=== PATIENT | male | born 1970 | race Caucasian/White ===

== ENCOUNTER 2018-07-04 19:50 | Observation (INO) | payer OTHER ==
[2018-07-04] MEDS ORDERED: Metoclopramide HCl 10 MG/2 ML VIAL ONE (21:37)
[2018-07-04] MEDS ORDERED: Ondansetron ODT 4 MG TAB SL PRN (23:01)
[2018-07-04] MEDS ORDERED: Ondansetron HCl/PF 4 MG/2 ML Vial IVP PRN (23:01)
[2018-07-04] MEDS ORDERED: HumaLOG 300 UNITS/3 ML VIAL SC PRN (23:03)
[2018-07-04] MEDS ORDERED: Dextrose 5% in Water 1,000 ML IV PRN (23:03)
[2018-07-04] MEDS ORDERED: Dextrose 50% Abboject 50 ML SYRINGE SLOW IVP PRN (23:03)
[2018-07-05] MEDS: Metoclopramide HCl 10 MG/2 ML VIAL IVP SCH ×3 (00:15→16:43)
[2018-07-05] MEDS: Sodium Chloride 0.9% 1,000 ML IV SCH ×2 (00:15→07:15)
[2018-07-05 01:23] VITALS: BMI 27.0
[2018-07-05 04:32] LABS: #Eosinphils 0.1 thou/uL (0.0-0.7); #Lymphocytes 3.1 thou/uL (1.20-3.40); #Monocytes 0.5 thou/uL (0.11-0.59); %Basophils 0.3 % (0.0-1.0); %Eosinophils 1.9 % (0.0-10.0); %Lymphocytes 39.7 % (21.0-51.0); %Monocytes 6.7 % (0.0-10.0); %Neutrophils 51.3 % (42.0-75.0); Hemoglobin 14.2 g/dL (14.0-18.0); Mean Corpuscular HGB CONC 35.9 g/dL (32.0-36.0); Mean Corpuscular Hemoglobin 32.4 pg (27.0-31.0); Mean Corpuscular Volume 90.3 fL (78.0-98.0); Mean Platelet Volume 6.9 fL (7.4-10.4); Platelet Count 189 thou/uL (130-400); RBC Distribution Width 11.1 % (11.5-14.5); Red Blood Cell (RBC) Count 4.37 mill/uL (4.70-6.10); White Blood Cell (WBC) Count 7.7 thou/uL (4.8-10.8)
[2018-07-05 05:01] LABS: Anion Gap 13 mmol/L (10-20); BUN (Urea Nitrogen) 10 mg/dL (8.9-20.6); Calc. Creatinine Clearance 147 mL/min (70-130); Calcium 8.3 mg/dL (7.8-10.44); Carbon Dioxide 22 mmol/L (22-29); Chloride 105 mmol/L (98-107); Estimated GFR-MDRD Greater than 90; Glucose 119 mg/dL (70-105); Potassium 3.2 mmol/L (3.5-5.1); Sodium 137 mmol/L (136-145)
[2018-07-05] MEDS: Enoxaparin Sodium 40 MG/0.4 ML SYRINGE SC SCH (08:35)
[2018-07-05] MEDS ORDERED: Famotidine/PF 20 mg/2ml Vial SLOW IVP SCH (09:00)
[2018-07-05] MEDS ORDERED: Potassium Chloride 20 MEQ in Premix Bag 1 BAG IVPB SCH (09:30)
--- NOTE | 2018-07-05 13:48 | ULT ---
GALLBLADDER ULTRASOUND: Date: 07/05/18 HISTORY: Right upper quadrant pain. FINDINGS: Real-time imaging of the right upper quadrant demonstrates a normal appearing gallbladder. Technologi st reports a negative ultrasound Lee's sign. Common duct is 4.0 mm. The liver is partially obscured by gas. No abnormality seen. Right kidney is normal in size and not obstructed. The pancreas is obscured. IMPRESSION: Unremarkable gallbladder ultrasound. POS: [facility]
--- NOTE | 2018-07-05 14:30 | HP ---
DATE OF ADMISSION: 07/04/2018 PRIMARY CARE PHYSICIAN: Patient reported follows with Dr. London Griggs in [place]. CODE STATUS: FULL CODE. TIME OF EVALUATION: 10:00 p.m. CHIEF COMPLAINT: Continued nausea and vomiting. HISTORY OF PRESENT ILLNESS: This is a 47-year-old male patient with past medical history of diabetes , recurrent, gastroparesis episodes, came to the hospital after having continuous nausea and vomiting . He reported he cannot hold anything down. Patient has been in the hospital in [place] and [place] ___ __ symptoms have been severe. No clear triggers, no alleviating factors, he is improved when I saw h im at bedside. Patient reported some nausea, vomiting, dysarthria with food. REVIEW OF SYSTEMS: Constitutional: No fever or chills. Patient reported generalized weakness. Res piratory: No cough, sputum production, shortness of breath. Cardiovascular: No chest pain, palpita tions, shortness of breath. Gastrointestinal: Patient had nausea, vomiting, diarrhea, and abdominal pain. MOBILITY ARCHITECT: No dizziness, headache, or feeling lightheaded. Genitourinary: No burning with urinat ion. Extremities: No leg swelling. All other systems were reviewed and negative except for the fin dings mentioned above. PAST MEDICAL HISTORY: Positive for diabetes type 2, hypertension. PAST SURGICAL HISTORY: No surgical history. PSYCHIATRIC HISTORY: No psych history. SOCIAL HISTORY: No alcohol, no drugs. No smoking history. FAMILY HISTORY: Reported as negative. DRUG ALLERGIES: No known drug allergies. REPORTED MEDICATIONS: Lantus, metformin, lisinopril, Zofran, Reglan, Protonix. PHYSICAL EXAMINATION: VITAL SIGNS: On presentation, blood pressure 123/81 with heart rate 91, respiratory rate was 18, tem perature 99, pain 6/10, oxygen saturation 97 on room air. GENERAL APPEARANCE: The patient is alert, oriented, not in any acute distress, has improved. HEENT: Eyes: Normal conjunctivae, moist mucous mucosa, anicteric. NECK: No JVD. RESPIRATORY: Bilateral air entry. No rales, no wheezing. Symmetric expansion. CARDIOVASCULAR: Normal rate, regular rhythm. No carotid bruits. No gallop. No edema. ABDOMEN: Soft, normal bowel sounds. MUSCULOSKELETAL: Baseline range of motion. No tenderness. SKIN: Warm, intact. No pallor, no rash, no redness. NEUROLOGIC: Baseline sensory. No evidence of any focal weakness. Baseline speech. Cranial nerves seem to be intact. PSYCHIATRIC: The patient is in a good mood. No anxiety and oriented. Optimal judgment. LABORATORY DATA: Records are reviewed. The patient has abdomen and pelvis, CAT scan done on the 24t h, which showed no specific abnormality, small hiatal hernia. Gallbladder is somewhat enlarged, but no stones were appreciated and tiny nonobstructing right renal calculus. The labs were reviewed. Ant dennison has white count 7.7, hemoglobin 14.2, MCV 90, platelet count 189. Sodium 137, potassium 3.2, c hloride 105, carbon dioxide 22, anion gap 13, BUN 10, creatinine 0.7, GFR 90, glucose 119, calcium 9. 3. ASSESSMENT AND PLAN: The patient will be placed in the hospital with following medical problems: 1. Continuous nausea and vomiting, most likely gastroparesis from diabetes, we will place the patien t on antiemetics, improved diabetic control. 2. Controlled diabetes. Patient presented with glucose of 119, we will reconcile home meds, patient has not been eating properly, so would not be aggressive with the insulin. 3. Hypokalemia with potassium 3.2, we will replace electrolytes as needed. 4. Deep venous thrombosis prophylaxis. .
[2018-07-05] MEDS: Ondansetron HCl/PF 4 MG/2 ML Vial IVP PRN (14:55)
[2018-07-05] MEDS: Acetaminophen 325 MG TAB PO PRN (16:43)
[2018-07-05] MEDS: NS 0.9% w/ 40 MEQ KCL 1,000 ML IV SCH (16:57)
[2018-07-05] MEDS ORDERED: Lisinopril 20 MG TAB PO SCH (17:30)
[2018-07-05] MEDS ORDERED: Lorazepam 2 MG/ML VIAL SLOW IVP SCH (17:30)
--- NOTE | 2018-07-05 19:35 | PDOC.EVN ---
Event Note - Event Note Event Note: pt's ruq ultrasound is negative. He continues to have n/v. His ct abd/pel is normal. will start reglan for possible gastroparesis if he continues to have n/ v will consider consulting gi. pt's lipase is normal. He is on ppi.
[2018-07-05] MEDS ORDERED: Lorazepam 2 MG/ML VIAL SLOW IVP PRN (21:26)
[2018-07-05] MEDS ORDERED: Metoclopramide HCl 10 MG/2 ML VIAL IVP SCH (22:00)
[2018-07-06] MEDS: Metoclopramide HCl 10 MG/2 ML VIAL IVP SCH ×4 (00:03→20:24)
[2018-07-06] MEDS: NS 0.9% w/ 40 MEQ KCL 1,000 ML IV SCH ×2 (03:33→14:17)
[2018-07-06] MEDS: Enoxaparin Sodium 40 MG/0.4 ML SYRINGE SC SCH (08:39)
[2018-07-06] MEDS: Lisinopril 20 MG TAB PO SCH ×2 (08:40→08:42)
[2018-07-06 09:17] LABS: #Eosinphils 0.1 thou/uL (0.0-0.7); #Lymphocytes 2.3 thou/uL (1.20-3.40); #Monocytes 0.8 thou/uL (0.11-0.59); #Neutrophils 5.9 thou/uL (1.40-6.50); %Basophils 0.5 % (0.0-1.0); %Eosinophils 1.5 % (0.0-10.0); %Lymphocytes 24.9 % (21.0-51.0); %Monocytes 8.4 % (0.0-10.0); %Neutrophils 64.7 % (42.0-75.0); Hemoglobin 16.6 g/dL (14.0-18.0); Mean Corpuscular HGB CONC 35.5 g/dL (32.0-36.0); Mean Corpuscular Hemoglobin 31.9 pg (27.0-31.0); Mean Corpuscular Volume 89.9 fL (78.0-98.0); Mean Platelet Volume 6.8 fL (7.4-10.4); Platelet Count 225 thou/uL (130-400); RBC Distribution Width 11.2 % (11.5-14.5); Red Blood Cell (RBC) Count 5.21 mill/uL (4.70-6.10); White Blood Cell (WBC) Count 9.2 thou/uL (4.8-10.8)
[2018-07-06 09:35] LABS: ALT (SGPT) 17 U/L (8-55); AST (SGOT) 11 U/L (5-34); Albumin 3.7 g/dL (3.5-5.0); Alkaline Phosphatase 59 U/L (40-150); Anion Gap 18 mmol/L (10-20); BUN (Urea Nitrogen) 9 mg/dL (8.9-20.6); Bilirubin, Total 0.9 mg/dL (0.2-1.2); Calc. Creatinine Clearance 131 mL/min (70-130); Calcium 8.9 mg/dL (7.8-10.44); Carbon Dioxide 16 mmol/L (22-29); Chloride 104 mmol/L (98-107); Estimated GFR-MDRD Greater than 90; Globulin 2.6 g/dL (2.4-3.5); Glucose 139 mg/dL (70-105); Potassium 4.1 mmol/L (3.5-5.1); Protein, Total 6.3 g/dL (6.0-8.3); Sodium 134 mmol/L (136-145)
--- NOTE | 2018-07-06 10:30 | PDOC.PN ---
- Subjective Encounter Start Date: 07/06/18 Encounter Start Time: 10:32 Subjective: pt up in bed still has nause and vomiting - Objective Resuscitation Status: Resuscitation Status FULL:Full Resuscitation Vital Signs & Weight: Vital Signs (12 hours) Temp Pulse Resp BP BP Pulse Ox 07/06/18 08:42 199/95 H 07/06/18 07:44 98.3 F 104 H 18 07/06/18 07:29 98.1 F 96 16 110/61 94 L 07/06/18 04:25 98.3 F 104 H 18 113/75 96 07/06/18 00:36 98.9 F 90 14 136/78 96 Weight Weight 177 lb 14.4 oz I&O: 07/05/18 07/06/18 07/07/18 06:59 06:59 06:59 Intake Total 970 2112 Output Total 450 2575 Balance 520 -463 Result Diagrams: 07/06/18 09:02 07/06/18 09:02 Additional Labs: Accuchecks 07/06/18 07/05/18 07/05/18 05:24 20:57 16:34 POC Glucose 139 H 153 H 143 H 07/05/18 10:29 POC Glucose 164 H Phys Exam - Physical Examination Neck: no nodes, no JVD, supple, full ROM Respiratory: no wheezing, no rales, no rhonchi, wheezing present, clear to auscultation bilateral Cardiovascular: RRR, no significant murmur, no rub, gallop, irregular mild epigastric pain Musculoskeletal: no edema, pulses present, edema present Dx/Plan (1) Nausea & vomiting Code(s): R11.2 - NAUSEA WITH VOMITING, UNSPECIFIED Status: Acute - Plan pt has been admitted couple times for n/v at [facility] -: He was sent home with dx of gastroparesis but pt continues to have n/v -: He had ct abd/pel which did not indicate any acute pathlogy -: lipase normal, ruq normal, pt was on farxiga which was discontinued -: will consult gi. pt on ppi and reglan. labs normal * . Review of Systems - Review of Systems Respiratory: negative: Cough, Dry, Shortness of Breath, Hemoptysis, SOB with Excertion, Pleuritic Pain, Sputum, Wheezing Gastrointestinal: Nausea, Vomiting Musculoskeletal: negative: Neck Pain, Shoulder Pain, Arm Pain, Back Pain, Hand Pain, Leg Pain, Foot Pain, Other - Medications/Allergies Allergies/Adverse Reactions: Allergies Allergy/AdvReac Type Severity Reaction Status Date / Time No Known Drug Allergies Allergy Verified 07/04/18 22:58 Medications: Current Medications Acetaminophen (Tylenol) 650 mg PO Q4H PRN PRN Reason: Headache/Fever or Pain Last Admin: 07/05/18 16:43 Dose: 650 mg Dextrose/Water (Dextrose 50%) 25 gm SLOW IVP PRN PRN PRN Reason: Hypoglycemia Enoxaparin Sodium (Lovenox) 40 mg SC 0900 [facility] Last Admin: 07/06/18 08:39 Dose: 40 mg Glucagon (Glucagon) 1 mg IM PRN PRN PRN Reason: Hypoglycemia Dextrose/Water (D5w) 1,000 mls @ 0 mls/hr IV .Q0M PRN PRN Reason: Hypoglycemia Potassium Chloride/Sodium Chloride (Ns 0.9% W/ 40 Meq Kcl) 1,000 mls @ 100 mls/ hr IV .Q10H [facility] Last Admin: 07/06/18 03:33 Dose: 1,000 mls Insulin Human Lispro (Humalog) 0 units SC .MILD SLIDING SCALE PRN PRN Reason: Mild Correctional Scale Lisinopril (Zestril) 40 mg PO DAILY [facility] Last Admin: 07/06/18 08:42 Dose: 40 mg Metoclopramide HCl (Reglan) 10 mg IVP 0800,1600,2359 [facility] Last Admin: 07/06/18 08:39 Dose: 10 mg Ondansetron HCl (Zofran) 4 mg IVP Q6H PRN PRN Reason: Nausea/Vomiting Last Admin: 07/05/18 14:55 Dose: 4 mg Sodium Chloride (Flush - Normal Saline) 10 ml IVF PRN PRN PRN Reason: Saline Flush
[2018-07-06] MEDS ORDERED: Pantoprazole 40 MG VIAL IVP SCH (10:45)
[2018-07-06] MEDS: Ondansetron HCl/PF 4 MG/2 ML Vial IVP PRN (10:55)
[2018-07-06] MEDS ORDERED: Promethazine HCl 25 MG/ML VIAL IVPB SCH (14:00)
--- NOTE | 2018-07-06 16:21 | CON ---
DATE OF CONSULTATION: 07/06/2018 HISTORY OF PRESENT ILLNESS: The patient is a 47-year-old male who reports 10-day history o f nausea and vomiting. He was initially hospitalized over at [facility] and kept there for a co uple of days. He did not undergo any gastric emptying or any other procedures and was told he had ga stroparesis. He was seen in the emergency room here on the and underwent a CT of the abdomen an d pelvis on 06/27/2018 that showed small hiatal hernia, large gallbladder, but no stones. Subsequent ly, he underwent an ultrasound on 07/05/2018 again showing no abnormalities. He was again seen in e emergency room on the and again on . He denies any change in his bowel movements. Denies any recent weight loss. He had lost approximately 130 pounds with diet and exercise over the last se veral years. PAST MEDICAL HISTORY: Includes diabetes mellitus for 12 years without neuropathy, hypertension. MEDICATIONS: Include metformin 1000 mg p.o. b.i.d., Protonix 40 mg p.o. b.i.d., lisinopril 2.5 mg p. o. daily, insulin 20 units subcu q.a.m. ALLERGIES: No known allergies. SOCIAL HISTORY: He does not smoke or drink. Denies any illicit drug use. FAMILY HISTORY: Negative for GI or liver disease. REVIEW OF SYSTEMS: Ten systems were reviewed and were negative except for above. PHYSICAL EXAMINATION: VITAL SIGNS: Shows temperature 98.6, pulse 66, respiratory rate 12, blood pressure 169/86. HEENT: Unremarkable. NECK: Supple. CHEST: Clear. CARDIOVASCULAR: Regular rate and rhythm. ABDOMEN: Significant for a pannus, but not obese, is nontender. LABORATORY DATA: Shows a white blood cell count of 9.2, hemoglobin 16.6, hematocrit of 46.8. Chemis tries; significant for sodium 134, CO2 16, glucose 139. Urinalysis is significant for 500 glucose, 8 0 ketones. ASSESSMENT: 1. Persistent nausea and vomiting. 2. Diabetes mellitus without neuropathy. RECOMMENDATIONS: EGD in a.m.
--- NOTE | 2018-07-06 16:50 | CT ---
CT BRAIN NONCONTRAST: HISTORY: 47-year-old male with nausea, vomiting, and headache. FINDINGS: The ventricles are normal in size and configuration. There is no midline shift or any other mass eff ect. There is no evidence of acute intracranial hemorrhage, large cortical infarct, or extraaxial fl uid collection. The fofana matter /white matter differentiation is maintained. The calvarium is intac t. The tympanomastoid cavities, and the upper portions of the paranasal sinuses included in these im ages, are grossly clear. IMPRESSION: Normal. karthik POS: [facility]
[2018-07-06] MEDS: Pantoprazole 40 MG VIAL IVP SCH (20:18)
[2018-07-07 01:09] LABS: Amphetamine Not Detected (NotDetected); Barbiturates Screen Not Detected (NotDetected); Benzodiazepine Screen Detected (NotDetected); Cocaine Metabolite Screen Not Detected (NotDetected); Medtox Control Line Valid? VALID (VALID); Medtox Reader # READER 4; Methadone Not Detected (NotDetected); Methamphetamine Not Detected (NotDetected); Opiate Screen Not Detected (NotDetected); Oxycodone Screen Not Detected (NotDetected); Phencyclidine (PCP) Not Detected (NotDetected); THC/Cannabinoid Screen Not Detected (NotDetected); Tricyclic Screen Not Detected (NotDetected)
[2018-07-07] MEDS: Metoclopramide HCl 10 MG/2 ML VIAL IVP SCH ×2 (02:17→07:53)
[2018-07-07] MEDS: NS 0.9% w/ 40 MEQ KCL 1,000 ML IV SCH ×3 (02:56→17:28)
[2018-07-07] MEDS: Pantoprazole 40 MG VIAL IVP SCH (07:53)
[2018-07-07] MEDS: Enoxaparin Sodium 40 MG/0.4 ML SYRINGE SC SCH (07:53)
[2018-07-07] MEDS: Lisinopril 20 MG TAB PO SCH (07:54)
[2018-07-07] MEDS ORDERED: PROPOFOL 200 MG/20 ML VIAL ONE (10:10)
[2018-07-07] MEDS ORDERED: Promethazine HCl 25 MG/ML VIAL IM PRN (10:25)
[2018-07-07] MEDS ORDERED: Ondansetron HCl/PF 4 MG/2 ML Vial IVP PRN (10:25)
[2018-07-07] MEDS ORDERED: Promethazine HCl 25 MG/ML VIAL SLOW IVP PRN (10:25)
[2018-07-07] MEDS ORDERED: Promethazine HCl 25 MG/ML VIAL ONE (10:29)
--- NOTE | 2018-07-07 10:59 | OP ---
DATE OF PROCEDURE: 07/07/2018 SURGEON: Dr. Pola Andrade PROCEDURE: After informed consent was obtained, the patient placed in the left lateral decubitus pos ition. Anesthesia was administered per the Anesthesia Department. Forward-viewing endoscope was ins erted in the esophagus under direct visualization with ease and passed to the second portion of the d uodenum with ease. Second portion of the duodenum and duodenal bulb were normal. The pylorus was no rmal. The antrum, body, fundus, and cardia were diffusely erythematous with a large amount of bile-c olored fluid in the stomach. Heme staining was noted throughout the stomach. Biopsies were taken fr om the antrum and body. Retroflexion in the stomach was normal. The GE junction was normal except t he Z-line was somewhat irregular. Biopsies were taken to rule out Ansari's. The patient had grade D erosive esophagitis. ASSESSMENT: 1. Grade D reflux esophagitis. 2. Irregular Z-line - status post biopsy. 3. Diffuse gastritis - status post biopsy. 4. Heme staining in the stomach. RECOMMENDATIONS: 1. IV PPI b.i.d. 2. Long-term PPI. 3. We will add some Carafate. 4. Gastric emptying scan.
[2018-07-07] MEDS: Sucralfate 1 GM TAB PO SCH ×3 (11:25→21:25)
[2018-07-07] MEDS ORDERED: Pantoprazole 80 MG, Admixture Fee 1 EACH in Sodium Chloride 0.9% 100 ML IVP SCH (11:30)
[2018-07-07] MEDS: Ondansetron HCl/PF 4 MG/2 ML Vial IVP PRN ×2 (11:40→18:11)
[2018-07-07 12:18] LABS: #Lymphocytes 1.2 thou/uL (1.20-3.40); #Monocytes 0.6 thou/uL (0.11-0.59); #Neutrophils 6.9 thou/uL (1.40-6.50); %Basophils 0.2 % (0.0-1.0); %Eosinophils 0.3 % (0.0-10.0); %Lymphocytes 14.1 % (21.0-51.0); %Monocytes 6.8 % (0.0-10.0); %Neutrophils 78.6 % (42.0-75.0); Hemoglobin 17.2 g/dL (14.0-18.0); Mean Corpuscular HGB CONC 35.3 g/dL (32.0-36.0); Mean Corpuscular Hemoglobin 31.8 pg (27.0-31.0); Mean Corpuscular Volume 90.2 fL (78.0-98.0); Mean Platelet Volume 6.6 fL (7.4-10.4); Platelet Count 244 thou/uL (130-400); RBC Distribution Width 11.3 % (11.5-14.5); White Blood Cell (WBC) Count 8.8 thou/uL (4.8-10.8)
[2018-07-07 12:29] LABS: Anion Gap 21 mmol/L (10-20); BUN (Urea Nitrogen) 10 mg/dL (8.9-20.6); Calc. Creatinine Clearance 110 mL/min (70-130); Calcium 9.4 mg/dL (7.8-10.44); Carbon Dioxide 15 mmol/L (22-29); Chloride 104 mmol/L (98-107); Estimated GFR-MDRD 86; Glucose 165 mg/dL (70-105); Potassium 4.4 mmol/L (3.5-5.1); Sodium 136 mmol/L (136-145)
[2018-07-07] MEDS: Acetaminophen 325 MG TAB PO PRN (15:37)
--- NOTE | 2018-07-07 17:07 | PDOC.PN ---
- Subjective Encounter Start Date: 07/07/18 Encounter Start Time: 10:45 Subjective: pt up in bed just came back from his egd - Objective Resuscitation Status: Resuscitation Status FULL:Full Resuscitation Vital Signs & Weight: Vital Signs (12 hours) Temp Pulse Resp BP BP Pulse Ox 07/07/18 15:21 98.8 F 87 20 179/96 H 97 07/07/18 12:53 129/72 07/07/18 11:40 98.6 F 77 15 97 07/07/18 10:42 102 H 16 141/83 H 97 07/07/18 08:00 98.3 F 108 H 16 07/07/18 07:39 98.3 F 108 H 16 159/102 H 97 Weight Weight 177 lb 14.4 oz I&O: 07/06/18 07/07/18 07/08/18 06:59 06:59 06:59 Intake Total 2112 2592 Output Total 2575 575 100 Balance -463 2016 Result Diagrams: 07/07/18 12:02 07/07/18 12:02 Additional Labs: Accuchecks 07/07/18 07/07/18 07/07/18 16:33 10:49 05:32 POC Glucose 172 H 175 H 175 H 07/06/18 21:08 POC Glucose 159 H Phys Exam - Physical Examination Neck: no nodes, no JVD, supple, full ROM Respiratory: no wheezing, no rales, no rhonchi, wheezing present, clear to auscultation bilateral Cardiovascular: RRR, no significant murmur, no rub, gallop, irregular Gastrointestinal: soft, non-tender, no distention, positive bowel sounds Dx/Plan (1) Nausea & vomiting Code(s): R11.2 - NAUSEA WITH VOMITING, UNSPECIFIED Status: Acute (2) Gastroparesis Code(s): K31.84 - GASTROPARESIS Status: Acute (3) Diabetes Code(s): E11.9 - TYPE 2 DIABETES MELLITUS WITHOUT COMPLICATIONS Status: Acute - Plan pt up in bed post egd -: pt on ppi -: pt to go for gastric emptyping study. * . Review of Systems - Review of Systems ENT: negative: Ear Pain, Ear Discharge, Nose Pain, Nose Discharge, Nose Congestion, Mouth Pain, Mouth Swelling, Throat Pain, Throat Swelling, Other Respiratory: negative: Cough, Dry, Shortness of Breath, Hemoptysis, SOB with Excertion, Pleuritic Pain, Sputum, Wheezing Cardiovascular: negative: chest pain, palpitations, orthopnea, paroxysmal nocturnal dyspnea, edema, light headedness, other Gastrointestinal: negative: Nausea, Vomiting, Abdominal Pain, Diarrhea, Constipation, Melena, Hematochezia, Other - Medications/Allergies Allergies/Adverse Reactions: Allergies Allergy/AdvReac Type Severity Reaction Status Date / Time No Known Drug Allergies Allergy Verified 07/04/18 22:58 Medications: Current Medications Acetaminophen (Tylenol) 650 mg PO Q4H PRN PRN Reason: Headache/Fever or Pain Last Admin: 07/07/18 15:37 Dose: 650 mg Dextrose/Water (Dextrose 50%) 25 gm SLOW IVP PRN PRN PRN Reason: Hypoglycemia Enoxaparin Sodium (Lovenox) 40 mg SC 0900 [facility] Last Admin: 07/07/18 07:53 Dose: Not Given Glucagon (Glucagon) 1 mg IM PRN PRN PRN Reason: Hypoglycemia Dextrose/Water (D5w) 1,000 mls @ 0 mls/hr IV .Q0M PRN PRN Reason: Hypoglycemia Potassium Chloride/Sodium Chloride (Ns 0.9% W/ 40 Meq Kcl) 1,000 mls @ 100 mls/ hr IV .Q10H [facility] Last Admin: 07/07/18 12:33 Dose: Not Given Pantoprazole Sodium 80 mg/Miscellaneous Medication 1 each/ Sodium Chloride 100 mls @ 10 mls/hr IVP INF [facility] Last Admin: 07/07/18 12:29 Dose: 100 mls Insulin Human Lispro (Humalog) 0 units SC .MILD SLIDING SCALE PRN PRN Reason: Mild Correctional Scale Last Admin: 07/07/18 11:25 Dose: 2 unit Lisinopril (Zestril) 40 mg PO DAILY [facility] Last Admin: 07/07/18 07:54 Dose: Not Given Ondansetron HCl (Zofran) 4 mg IVP Q6H PRN PRN Reason: Nausea/Vomiting Last Admin: 07/07/18 11:40 Dose: 4 mg Sodium Chloride (Flush - Normal Saline) 10 ml IVF PRN PRN PRN Reason: Saline Flush Sucralfate (Carafate) 1 gm PO ACHS [facility] Last Admin: 07/07/18 16:30 Dose: 1 gm
[2018-07-07] MEDS ORDERED: hydrALAZINE 20 MG/ML VIAL SLOW IVP PRN (18:00)
[2018-07-07] MEDS ORDERED: Lisinopril 20 MG TAB PO SCH (18:00)
[2018-07-07] MEDS ORDERED: Melatonin 3 MG TAB PO PRN (21:18)
[2018-07-08] MEDS: NS 0.9% w/ 40 MEQ KCL 1,000 ML IV SCH ×2 (04:25→16:33)
[2018-07-08 04:49] LABS: Anion Gap 17 mmol/L (10-20); BUN (Urea Nitrogen) 12 mg/dL (8.9-20.6); Calc. Creatinine Clearance 124 mL/min (70-130); Carbon Dioxide 18 mmol/L (22-29); Chloride 106 mmol/L (98-107); Estimated GFR-MDRD Greater than 90; Glucose 132 mg/dL (70-105); Sodium 137 mmol/L (136-145)
--- NOTE | 2018-07-08 09:52 | PDOC.PN ---
- Subjective Encounter Start Date: 07/08/18 Encounter Start Time: 10:30 Subjective: pt up in bed no complains - Objective Resuscitation Status: Resuscitation Status FULL:Full Resuscitation Vital Signs & Weight: Vital Signs (12 hours) Temp Pulse Resp BP Pulse Ox 07/08/18 08:23 98.0 F 89 18 07/08/18 07:47 98.0 F 89 18 128/81 95 07/08/18 03:44 98.1 F 73 14 120/76 95 07/08/18 00:08 98.5 F 71 16 101/68 95 Weight Weight 165 lb 14.4 oz I&O: 07/07/18 07/08/18 07/09/18 06:59 06:59 06:59 Intake Total 2592 2140 Output Total 575 100 Balance 2016 2039 Result Diagrams: 07/07/18 12:02 07/08/18 03:23 Additional Labs: Accuchecks 07/07/18 07/07/18 07/07/18 21:04 16:33 10:49 POC Glucose 158 H 172 H 175 H Phys Exam - Physical Examination Neck: no nodes, no JVD, supple, full ROM Respiratory: no wheezing, no rales, no rhonchi, wheezing present, clear to auscultation bilateral Cardiovascular: RRR, no significant murmur, no rub, gallop, irregular Gastrointestinal: soft, non-tender, no distention, positive bowel sounds Dx/Plan (1) Nausea & vomiting Code(s): R11.2 - NAUSEA WITH VOMITING, UNSPECIFIED Status: Acute (2) Gastroparesis Code(s): K31.84 - GASTROPARESIS Status: Acute (3) Diabetes Code(s): E11.9 - TYPE 2 DIABETES MELLITUS WITHOUT COMPLICATIONS Status: Acute - Plan pt to have gastric emptyping studying -: will see if he can tolerate his po fluids well -: will continue carafate and ppi * . Review of Systems - Review of Systems Respiratory: negative: Cough, Dry, Shortness of Breath, Hemoptysis, SOB with Excertion, Pleuritic Pain, Sputum, Wheezing Cardiovascular: negative: chest pain, palpitations, orthopnea, paroxysmal nocturnal dyspnea, edema, light headedness, other Gastrointestinal: negative: Nausea, Vomiting, Abdominal Pain, Diarrhea, Constipation, Melena, Hematochezia, Other Genitourinary: negative: Dysuria, Frequency, Incontinence, Hematuria, Retention , Other - Medications/Allergies Allergies/Adverse Reactions: Allergies Allergy/AdvReac Type Severity Reaction Status Date / Time No Known Drug Allergies Allergy Verified 07/04/18 22:58 Medications: Current Medications Acetaminophen (Tylenol) 650 mg PO Q4H PRN PRN Reason: Headache/Fever or Pain Last Admin: 07/07/18 15:37 Dose: 650 mg Dextrose/Water (Dextrose 50%) 25 gm SLOW IVP PRN PRN PRN Reason: Hypoglycemia Enoxaparin Sodium (Lovenox) 40 mg SC 0900 [facility] Last Admin: 07/07/18 07:53 Dose: Not Given Glucagon (Glucagon) 1 mg IM PRN PRN PRN Reason: Hypoglycemia Hydralazine HCl (Apresoline) 5 mg SLOW IVP Q6H PRN PRN Reason: .SBP >180 Dextrose/Water (D5w) 1,000 mls @ 0 mls/hr IV .Q0M PRN PRN Reason: Hypoglycemia Potassium Chloride/Sodium Chloride (Ns 0.9% W/ 40 Meq Kcl) 1,000 mls @ 100 mls/ hr IV .Q10H [facility] Last Admin: 07/08/18 04:25 Dose: 1,000 mls Pantoprazole Sodium 80 mg/Miscellaneous Medication 1 each/ Sodium Chloride 100 mls @ 10 mls/hr IVP INF [facility] Last Admin: 07/07/18 12:29 Dose: 100 mls Insulin Human Lispro (Humalog) 0 units SC .MILD SLIDING SCALE PRN PRN Reason: Mild Correctional Scale Last Admin: 07/07/18 11:25 Dose: 2 unit Lisinopril (Zestril) 40 mg PO DAILY [facility] Last Admin: 07/07/18 07:54 Dose: Not Given Ondansetron HCl (Zofran) 4 mg IVP Q6H PRN PRN Reason: Nausea/Vomiting Last Admin: 07/07/18 18:11 Dose: 4 mg Sodium Chloride (Flush - Normal Saline) 10 ml IVF PRN PRN PRN Reason: Saline Flush Sucralfate (Carafate) 1 gm PO ACHS [facility] Last Admin: 07/07/18 21:25 Dose: 1 gm
--- NOTE | 2018-07-08 12:09 | PRG ---
DATE OF SERVICE: 07/08/2018 SUBJECTIVE: The patient is doing well. He says he has not had any nausea, vomiting. He is presentl y n.p.o. and awaiting a gastric emptying scan. OBJECTIVE: VITAL SIGNS: Temperature 98.0, pulse 89, respiratory rate 18, and blood pressure 128/81. CHEST: Clear. CARDIOVASCULAR: Regular rate and rhythm. ABDOMEN: Benign. LABORATORY DATA: Shows a normal BMP. ASSESSMENT: 1. Persistent nausea and vomiting. 2. Grade D reflux esophagitis. 3. Diffuse gastritis. RECOMMENDATIONS: 1. Continue IV PPI b.i.d. 2. Await gastric emptying scan results. 3. Long-term PPI. 4. Resume diet after gastric emptying scan and if able to tolerate would be able to be discharged fr om GI standpoint.
[2018-07-08] MEDS: Ondansetron HCl/PF 4 MG/2 ML Vial IVP PRN (14:57)
[2018-07-08] MEDS: Sucralfate 1 GM TAB PO SCH ×3 (14:57→20:41)
[2018-07-08] MEDS: Lisinopril 20 MG TAB PO SCH (14:57)
[2018-07-08 15:13] VITALS: TEMP 98.1
--- NOTE | 2018-07-08 15:15 | NM ---
GASTRIC EMPTYING EXAM: HISTORY: Persistent nausea and vomiting. TECHNIQUE: A nuclear medicine gastric emptying exam was performed after administration of 2 mCi of sulfur colloi d mixed with eggs. FINDINGS: 25% emptying is seen at 30 minutes. 25% emptying is seen at 61 minutes. 60% emptying is seen at 126 minutes. 59% emptying is seen at 195 minutes. 55% emptying is seen at 238 minutes. T-1/2 of gastr ic emptying is 107 minutes. IMPRESSION: Delayed gastric emptying. POS: [facility]
[2018-07-08] MEDS: Enoxaparin Sodium 40 MG/0.4 ML SYRINGE SC SCH (15:33)
[2018-07-08] MEDS: Metoclopramide 10 MG/10 ML UDCUP PO SCH ×2 (16:24→20:40)
[2018-07-08] MEDS: Sodium Chloride 0.9% 1,000 ML IV SCH (16:26)
--- NOTE | 2018-07-08 16:31 | PDOC.EVN ---
Event Note - Event Note Event Note: delayed gastric emptying study. will add reglan oral. if pt tolerates oral well he can go home in am.
[2018-07-08] MEDS: Pantoprazole 40 MG VIAL IVP SCH (20:41)
[2018-07-09] MEDS: Sodium Chloride 0.9% 1,000 ML IV SCH (02:06)
[2018-07-09 08:21] VITALS: BP 120/80
[2018-07-09] MEDS: Metoclopramide 10 MG/10 ML UDCUP PO SCH ×2 (08:30→11:31)
[2018-07-09] MEDS: Sucralfate 1 GM TAB PO SCH ×2 (08:31→11:32)
[2018-07-09] MEDS: Enoxaparin Sodium 40 MG/0.4 ML SYRINGE SC SCH (08:32)
[2018-07-09] MEDS: Pantoprazole 40 MG VIAL IVP SCH (08:32)
[2018-07-09] MEDS: Lisinopril 20 MG TAB PO SCH (08:32)
--- NOTE | 2018-07-09 11:42 | DIS ---
DATE OF ADMISSION: 07/04/2018 DATE OF DISCHARGE: 07/09/2018 DISCHARGE DIAGNOSES: 1. Diabetic gastroparesis. 2. Nausea and vomiting, resolving. 3. Diabetes mellitus type 2, insulin requiring. CONSULTATION: Dr. Andrade with GI Service. PERTINENT LABORATORY DATA AND IMAGING DATA: Basic metabolic profile within normal limits. LFT is wi thin normal limits. CBC within normal limits. Abdominal ultrasound dated 07/05/[address] of the brain without contrast dated 07/06/2018 showed negative findings. Gastric empt sudhir study dated 07/08/2018 showed delayed gastric emptying. HOSPITAL COURSE: The patient was observed on the medical floor after initially presenting with persi stent nausea and vomiting in the context of known diabetes mellitus with suspected gastroparesis. Th e patient was placed on IV fluids and given antiemetics and proton pump inhibitors. The patient was evaluated by the GI Service with recommendations for symptomatic management. The patient had a protr acted hospital course due to the difficult to control symptoms and persistent nausea. The patient un derwent evaluation including gastric emptying study showing delayed study with recommendations for me toclopramide and continuation of a proton pump inhibitor. The patient eventually improved symptomati alec and was tolerating regular oral intake without recurrent nausea or vomiting. The patient remai mihai clinically stable for the remainder the hospital course. I have examined the patient at the time of discharge and discussed followup instructions at which patient verbalized understanding and agree ment. The patient overall clinically stable and ready for discharge on 07/09/2018. DISCHARGE MEDICATIONS: 1. Reglan 10 mg p.o. t.i.d. 2. Lisinopril 40 mg p.o. daily. 3. Zofran 4 mg p.o. q.8 hours p.r.n. nausea, vomiting. 4. Metformin 1000 mg p.o. b.i.d. 5. Levemir 20 units subcutaneously daily. 6. Protonix 40 mg p.o. b.i.d. FOLLOWUP: Patient to follow up with primary care provider, Dr. London Griggs in [place], [place]. CONDITION ON DISCHARGE: Stable. ACTIVITY: Ad aydin. DIET: ADA. CODE STATUS: Full. DISPOSITION: Home 07/09/2018.
== END 2018-07-09 12:23 | disposition home or self-care (01) ==
LOC: ERS 19:50 → 2SW 21:30
PROVIDERS: ADMIT Hospitalist; ATTEND Hospitalist
PROC: 0DB58ZX Excision of Esophagus, Via Natural or Artificial Opening Endoscopic, Diagnostic (ICD-10-PCS; principal; 2018-07-07)
PROC: 0DB68ZX Excision of Stomach, Via Natural or Artificial Opening Endoscopic, Diagnostic (ICD-10-PCS; 2018-07-07)
DX: K21.0 Gastro-esophageal reflux disease with esophagitis (principal); E11.43 Type 2 diabetes mellitus with diabetic autonomic (poly)neuropathy; K31.84 Gastroparesis; I10 Essential (primary) hypertension; Z79.4 Long term (current) use of insulin; Z79.899 Other long term (current) drug therapy
CPT/HCPCS: 36415; 36416; 70450; 76705; 78264; 80048; 80053; 80306; 85025; 88305; 88312; 88313; 96361; 96365; 96366; 96367; 96372; 96375; 96376; A4216; A9541; C9113; G0378; J1650; J2060; J2405; J2550; J2704; J2765; J3480; J7050; S0028

== ENCOUNTER 2018-08-26 19:49 | Emergency (ER) | payer OTHER ==
[2018-08-26] MEDS ORDERED: Haloperidol Lactate 5 MG/ML VIAL ONE (20:52)
[2018-08-26] MEDS ORDERED: diphenhydrAMINE 50 MG CAP ONE (20:53)
[2018-08-26 21:56] LABS: Lactic Acid 1.5 mmol/L (0.5-2.2)
== END 2018-08-26 22:53 | disposition home or self-care (01) ==
LOC: ERS 19:49
DX: E11.43 Type 2 diabetes mellitus with diabetic autonomic (poly)neuropathy (principal); K31.84 Gastroparesis; I10 Essential (primary) hypertension; Z79.4 Long term (current) use of insulin; Z79.899 Other long term (current) drug therapy
CPT/HCPCS: 36416; 83605; 96374; J1630

== ENCOUNTER 2018-10-06 11:55 | Outpatient (CLI) | payer OTHER ==
--- NOTE | 2018-10-06 17:53 | NM ---
NUCLEAR MEDICINE HIDA SCAN: INDICATIONS: Right upper quadrant pain. RADIOPHARMACEUTICAL: Technetium mebrofenin 5.2 millicuries IV. FINDINGS: There is visualization of the gallbladder by less than 10 minutes of imaging. Subsequent activity is seen within the bowel. Subsequently, after 8 oz of protein supplementation was administered orally, gallbladder ejection fraction was evaluated. There is a diminished gallbladder ejection fraction at less than 20%. IMPRESSION: 1. Visualization of the gallbladder excludes cystic duct obstruction. 2. Diminished gallbladder ejection fraction, which may reflect biliary dyskinesia. Correlate clinic [facility]. POS: [facility]
== END 2018-10-06 11:56 | disposition home or self-care (01) ==
LOC: NM 11:55
PROVIDERS: ATTEND Internal Medicine Gastroenterology
DX: R10.11 Right upper quadrant pain (principal); K21.0 Gastro-esophageal reflux disease with esophagitis; K31.84 Gastroparesis; R94.8 Abnormal results of function studies of other organs and systems
CPT/HCPCS: 78227; A9537

== ENCOUNTER 2018-10-14 12:28 | Inpatient (IN) | payer OTHER ==
[2018-10-14] MEDS ORDERED: Morphine 4 MG/ML VIAL SLOW IVP PRN ×3 (12:48→15:42)
[2018-10-14] MEDS ORDERED: Dextrose 50% Abboject 50 ML SYRINGE IVP PRN (12:49)
[2018-10-14] MEDS ORDERED: Dextrose 5% in Water 1,000 ML IV PRN ×2 (12:49→15:42)
[2018-10-14] MEDS ORDERED: Ondansetron PF 4 MG/2 ML Vial SLOW IVP PRN (12:49)
[2018-10-14] MEDS ORDERED: Promethazine HCl 25 MG/ML VIAL SLOW IVP PRN ×2 (12:49→15:58)
[2018-10-14] MEDS: Sodium Chloride 0.9% 1,000 ML IV SCH ×3 (12:58→21:18)
[2018-10-14] MEDS ORDERED: Sodium Chloride 0.9% 1,000 ML IV SCH (13:00)
[2018-10-14 13:15] VITALS: BMI 25.0
[2018-10-14] MEDS ORDERED: Bupivacaine/Epinephrine 0.25% 30 ML VIAL ONE (13:26)
[2018-10-14] MEDS ORDERED: Fentanyl 100 MCG/2 ML VIAL ONE ×4 (13:38→16:27)
[2018-10-14] MEDS ORDERED: ceFOXitin 1 GM VIAL ONE (13:48)
[2018-10-14 13:56] LABS: #Lymphocytes 1.1 thou/uL (1.20-3.40); #Monocytes 0.4 thou/uL (0.11-0.59); #Neutrophils 6.5 thou/uL (1.40-6.50); %Basophils 0.4 % (0.0-1.0); %Eosinophils 0.3 % (0.0-10.0); %Lymphocytes 13.8 % (21.0-51.0); %Neutrophils 80.5 % (42.0-75.0); Hemoglobin 14.2 g/dL (14.0-18.0); Mean Corpuscular HGB CONC 33.5 g/dL (32.0-36.0); Mean Corpuscular Hemoglobin 30.8 pg (27.0-31.0); Mean Platelet Volume 6.5 fL (7.4-10.4); Platelet Count 365 thou/uL (130-400); RBC Distribution Width 11.9 % (11.5-14.5); White Blood Cell (WBC) Count 8.1 thou/uL (4.8-10.8)
[2018-10-14] MEDS ORDERED: cefOXitin Sodium/Dextrose,Iso 2 GM in Premix Bag 1 BAG IVPB SCH (14:00)
[2018-10-14] MEDS ORDERED: Labetalol HCl 100 MG/20 ML VIAL ONE (14:04)
[2018-10-14 14:39] LABS: ALT (SGPT) 11 U/L (8-55); AST (SGOT) 11 U/L (5-34); Albumin 4.4 g/dL (3.5-5.0); Alkaline Phosphatase 65 U/L (40-150); Anion Gap 13 mmol/L (10-20); BUN (Urea Nitrogen) 22 mg/dL (8.9-20.6); Bilirubin, Direct 0.4 mg/dL (0.1-0.3); Bilirubin, Total 0.9 mg/dL (0.2-1.2); Calc. Creatinine Clearance 93 mL/min (70-130); Calcium 10.1 mg/dL (7.8-10.44); Carbon Dioxide 31 mmol/L (22-29); Chloride 97 mmol/L (98-107); Estimated GFR-MDRD 78; Globulin 2.6 g/dL (2.4-3.5); Glucose 188 mg/dL (70-105); Potassium 3.5 mmol/L (3.5-5.1); Sodium 137 mmol/L (136-145)
[2018-10-14] MEDS ORDERED: Iothalamate Meglumine 60% 50 ML VIAL FS ONE (14:41)
[2018-10-14] MEDS ORDERED: Mag-Al 1200 mg/1200 mg/30 ML UDCUP PO PRN (15:42)
[2018-10-14] MEDS ORDERED: Promethazine HCl 25 MG/ML VIAL IM PRN ×2 (15:42→15:58)
[2018-10-14] MEDS ORDERED: Calcium Carbonate 500 MG ChewTAB PO PRN (15:42)
[2018-10-14] MEDS ORDERED: Dextrose 50% Abboject 50 ML SYRINGE SLOW IVP PRN (15:42)
[2018-10-14] MEDS ORDERED: HYDROcodone/Acetaminophen 10/325 mg Tablet PO PRN ×2 (15:42)
[2018-10-14] MEDS ORDERED: Ondansetron HCl/PF 4 MG/2 ML Vial IVP PRN (15:58)
[2018-10-14] MEDS ORDERED: Promethazine HCl 25 MG/ML VIAL ONE (16:01)
[2018-10-14] MEDS ORDERED: PROPOFOL 200 MG/20 ML VIAL ONE (16:53)
[2018-10-14] MEDS ORDERED: ePHEDrine/0.9% NaCl/PF SYRINGE 50 mg/10 ml ONE (16:53)
[2018-10-14] MEDS ORDERED: PHENYLEPHRINE-NS 100 MCG/ML 10 ML SYRINGE ONE (16:53)
[2018-10-14] MEDS ORDERED: Glycopyrrolate 0.2 MG/ML 5 ML SYRINGE ONE (16:53)
[2018-10-14] MEDS ORDERED: Ondansetron PF 4 MG/2 ML Vial ONE (16:53)
[2018-10-14] MEDS ORDERED: Succinylcholine Chloride 20 MG/ML 10 ml SYRINGE FS ONE (16:53)
[2018-10-14] MEDS ORDERED: Lidocaine 1% PF 5 ML VIAL ONE (16:53)
[2018-10-14] MEDS ORDERED: Ketorolac Tromethamine 30 MG/ML VIAL ONE (16:53)
[2018-10-14] MEDS: Ketorolac Tromethamine 30 MG/ML VIAL IVP SCH (17:40)
[2018-10-14] MEDS: Famotidine 20 MG TAB PO SCH (20:48)
[2018-10-14] MEDS: Famotidine/PF 20 mg/2ml Vial SLOW IVP SCH (20:49)
[2018-10-14] MEDS: cefOXitin Sodium/Dextrose,Iso 2 GM in Premix Bag 1 BAG IVPB SCH (21:30)
[2018-10-15] MEDS: Ketorolac Tromethamine 30 MG/ML VIAL IVP SCH ×4 (00:15→17:17)
[2018-10-15] MEDS: Insulin Regular 300 UNITS/3 ML VIAL SC PRN ×2 (00:17→12:22)
[2018-10-15] MEDS: Sodium Chloride 0.9% 1,000 ML IV SCH ×4 (01:48→11:56)
[2018-10-15] MEDS: cefOXitin Sodium/Dextrose,Iso 2 GM in Premix Bag 1 BAG IVPB SCH ×3 (06:01→21:00)
[2018-10-15] MEDS: Ondansetron PF 4 MG/2 ML Vial IVP PRN (06:30)
[2018-10-15 06:38] LABS: #Eosinphils 0.1 thou/uL (0.0-0.7); #Lymphocytes 2.2 thou/uL (1.20-3.40); #Monocytes 0.6 thou/uL (0.11-0.59); #Neutrophils 5.1 thou/uL (1.40-6.50); %Basophils 0.4 % (0.0-1.0); %Eosinophils 1.7 % (0.0-10.0); %Lymphocytes 27.1 % (21.0-51.0); %Monocytes 7.7 % (0.0-10.0); %Neutrophils 63.1 % (42.0-75.0); Hemoglobin 10.5 g/dL (14.0-18.0); Mean Corpuscular HGB CONC 35.4 g/dL (32.0-36.0); Mean Corpuscular Hemoglobin 33.1 pg (27.0-31.0); Mean Corpuscular Volume 93.5 fL (78.0-98.0); Mean Platelet Volume 6.8 fL (7.4-10.4); Platelet Count 262 thou/uL (130-400); RBC Distribution Width 11.9 % (11.5-14.5); Red Blood Cell (RBC) Count 3.18 mill/uL (4.70-6.10); White Blood Cell (WBC) Count 8.1 thou/uL (4.8-10.8)
[2018-10-15 07:10] LABS: ALT (SGPT) 31 U/L (8-55); AST (SGOT) 32 U/L (5-34); Alkaline Phosphatase 50 U/L (40-150); Anion Gap 9 mmol/L (10-20); BUN (Urea Nitrogen) 23 mg/dL (8.9-20.6); Bilirubin, Total 0.6 mg/dL (0.2-1.2); Calc. Creatinine Clearance 115 mL/min (70-130); Calcium 8.3 mg/dL (7.8-10.44); Carbon Dioxide 30 mmol/L (22-29); Chloride 101 mmol/L (98-107); Estimated GFR-MDRD Greater than 90; Globulin 1.7 g/dL (2.4-3.5); Glucose 145 mg/dL (70-105); Lipase 17 U/L (8-78); Potassium 3.5 mmol/L (3.5-5.1); Protein, Total 4.7 g/dL (6.0-8.3); Sodium 136 mmol/L (136-145)
[2018-10-15] MEDS ORDERED: Scopolamine 1.5 mg/72 hour Patch TD SCH (07:30)
--- NOTE | 2018-10-15 07:44 | HP ---
CHIEF COMPLAINT: Epigastric pain. HISTORY: This is a 48-year-old male, who has been a diabetic, insulin-dependent, for the last 12 years. Since June, he has had severe mid epigastric pain. He has been to the emergency room twice for this. He was diagnosed to have gastroparesis on gastric emptying study. He has tried Reglan, no help. He has had a 40-pound weight loss in the last 3 months. An ultrasound was negative. HIDA scan shows a low ejection fraction of 20%. PAST MEDICAL HISTORY: Significant for diabetes mellitus, hypertension, kidney stones, and esophagitis. PAST SURGICAL HISTORY: EGD. MEDICATIONS: 1. Metformin. 2. Lantus. 3. Pravastatin. 4. Lisinopril. 5. Metoclopramide. ALLERGIES: HE HAS NO KNOWN DRUG ALLERGIES. FAMILY HISTORY: Both parents are alive. Father has cancer. SOCIAL HISTORY: He is . No tobacco or alcohol. PHYSICAL EXAMINATION: GENERAL: He looks pale, lethargic, ashen color, very weak. HEENT: No jaundice. LUNGS: Clear. HEART: Regular rate and rhythm. ABDOMEN: Soft, very tender in the epigastrium and right upper quadrant. Positive Lee sign. EXTREMITIES: Good pulses. No pedal edema. ASSESSMENT: 1. Dehydration. 2. Cholecystitis. PLAN: Admit, IV fluids. Check lab. Recommend laparoscopic cholecystectomy. CONSENT: I have discussed the planned procedure as well as risk of bleeding, infection, injury to bile duct, bowel, need to open. He understands and gives informed consent. Job ID: [id number]
[2018-10-15] MEDS: Metoclopramide HCl 10 MG TAB PO SCH ×4 (08:48→20:59)
[2018-10-15] MEDS: Famotidine 20 MG TAB PO SCH ×2 (08:49→20:59)
[2018-10-15] MEDS: Enoxaparin Sodium 40 MG/0.4 ML SYRINGE SC SCH (08:49)
[2018-10-15] MEDS: Famotidine/PF 20 mg/2ml Vial SLOW IVP SCH ×2 (08:51→20:59)
[2018-10-15] MEDS ORDERED: Multivit, Adult Inj 10 ML VIAL IV SCH (10:00)
--- NOTE | 2018-10-15 10:14 | OP ---
DATE OF PROCEDURE: 10/14/2018 PREOPERATIVE DIAGNOSIS: Acute cholecystitis. PROCEDURE PERFORMED: Laparoscopic cholecystectomy. INDICATIONS FOR PROCEDURE: The patient is a 48-year-old male, who has had progressive right upper quadrant pain and nausea. Ultrasound was normal. HIDA scan showed a minimal ejection fraction. FINDINGS: He had a very distended gallbladder with sludge, inflamed. He had omental tissue adherent to the gallbladder. He had a very tiny caliber cystic duct. I tried to do a cholangiogram. I could not calibrate it because it was a fraction of a millimeter in diameter. DESCRIPTION OF PROCEDURE: After informed consent was obtained, the patient was taken to the operating room and given general endotracheal anesthesia, placed in the supine position. Abdomen was prepped and draped in usual fashion. Local anesthesia infiltrated subcutaneously and deep, and a supraumbilical incision was performed with subcu device sharply. The fascia grasped and two stay sutures of 0 Vicryl placed each side of midline. Midline incised. Digital palpation revealed no local adhesions. A blunt 10/12 mm trocar inserted. Pneumoperitoneum was created to a pressure of 15 mmHg. A 0-degree laparoscope inserted under direct vision. Three 5-mm ports were placed subcostally. The gallbladder grasped and advanced superiorly. Peritoneum lysed distally to dissect out the cystic duct and artery. The cystic duct was extremely small. A clip was placed at the base of the gallbladder, and an incision was made in the cystic duct. I tried multiple times to cannulate it with an Arrow cholangiocatheter, but I just could not get the tip in this tiny little duct, so eventually the cystic duct tore, and I was able to retrieve it and put clips on it. The gallbladder then was removed from its fossa utilizing electrocautery, removed from the abdomen in an Endosac through the umbilical port. Hemostasis was assured. Trocars and retractors were removed. The fascia was closed with interrupted 0 Vicryl suture. The skin closed with interrupted 4-0 Rapide. Dermabond applied. The patient tolerated the procedure well and transferred to Recovery in good condition. Sponge and needle count verified correct x2. Job ID: [id number]
--- NOTE | 2018-10-15 10:16 | PRG ---
DATE OF SERVICE: 10/15/2018 SUBJECTIVE: The patient says he feels a little better, but still having a lot of nausea. Pain is improved. PHYSICAL EXAMINATION: VITAL SIGNS: Temperature 98.7, pulse 72, blood pressure 94/56. GENERAL: He is awake and alert. He does not look better. ABDOMEN: Soft, nondistended. Incisions look okay. LABORATORY DATA: His white count is 8.1, H and H 10 and 29, platelet count 262. His glucose is 145. His liver function tests are okay. ASSESSMENT: Gastroparesis. PLAN: We will restart Raglan. Job ID: [id number]
[2018-10-15] MEDS ORDERED: Multivitamins, Adult 10 ML in Sodium Chloride 0.9% 1,000 ML IV SCH ×2 (10:30→12:30)
[2018-10-15] MEDS: hydrALAZINE 20 MG/ML VIAL SLOW IVP PRN (11:51)
[2018-10-16] MEDS: Ketorolac Tromethamine 30 MG/ML VIAL IVP SCH ×2 (00:01→06:40)
[2018-10-16] MEDS: Ondansetron PF 4 MG/2 ML Vial IVP PRN (00:09)
[2018-10-16] MEDS: hydrALAZINE 20 MG/ML VIAL SLOW IVP PRN (00:34)
[2018-10-16] MEDS: Sodium Chloride 0.9% 1,000 ML IV SCH (02:01)
[2018-10-16 04:41] VITALS: TEMP 98.5
[2018-10-16] MEDS: cefOXitin Sodium/Dextrose,Iso 2 GM in Premix Bag 1 BAG IVPB SCH (06:39)
[2018-10-16] MEDS: Metoclopramide HCl 10 MG TAB PO SCH (06:40)
[2018-10-16 08:15] VITALS: BP 124/80
[2018-10-16] MEDS: Famotidine 20 MG TAB PO SCH (09:32)
[2018-10-16] MEDS: Enoxaparin Sodium 40 MG/0.4 ML SYRINGE SC SCH (09:32)
[2018-10-16] MEDS: Famotidine/PF 20 mg/2ml Vial SLOW IVP SCH (09:32)
--- NOTE | 2018-10-16 11:36 | DIS ---
DATE OF ADMISSION: 10/14/2018 DATE OF DISCHARGE: 10/16/2018 DISCHARGE DIAGNOSES: 1. Acute cholecystitis. 2. Severe gastroparesis. 3. Diabetes mellitus. PROCEDURES DURING ADMISSION: IV fluids, laparoscopic cholecystectomy. HOSPITAL COURSE: The patient was admitted in severe pain, was given IV fluids, IV antibiotics, taken to the operating room, where he underwent a laparoscopic cholecystectomy. He was found to have acute cholecystitis. Postoperatively, he still had quite a bit of pain. GI was supposed to see him again. I have asked the dietitian to make recommendations about his diet. This morning, he is feeling much better. He is tolerating liquids well. Pain is controlled on p.o. medications. He is discharged home on hydrocodone and Zofran. He will follow up with me in two weeks. Job ID: [id number]
== END 2018-10-16 11:03 | disposition home or self-care (01) | DRG 419 ==
LOC: SURG A 12:28
PROVIDERS: ADMIT Surgery; ATTEND Surgery
PROC: 0FT44ZZ Resection of Gallbladder, Percutaneous Endoscopic Approach (ICD-10-PCS; principal; 2018-10-14)
DX: K81.0 Acute cholecystitis (principal); K82.8 Other specified diseases of gallbladder; E86.0 Dehydration; E11.43 Type 2 diabetes mellitus with diabetic autonomic (poly)neuropathy; K31.84 Gastroparesis; I10 Essential (primary) hypertension; Z87.442 Personal history of urinary calculi; Z79.4 Long term (current) use of insulin
CPT/HCPCS: 36415; 36416; 80053; 80076; 83690; 84425; 85025; 88304; 93005; 93010; J0360; J0694; J1815; J1885; J2001; J2405; J2550; J2704; J3010; J3411; J7050; Q9961; S0028